=== PATIENT | female | born 1945 | race Caucasian/White ===

== ENCOUNTER 2017-10-14 09:48 | Outpatient (CLI) | payer OTHER | END 2017-10-14 09:50 | LOC: POD 09:48 | PROVIDERS: ATTEND Podiatrist Public Medicine | DX: M72.2 Plantar fascial fibromatosis (principal); M79.671 Pain in right foot; M79.672 Pain in left foot; B35.1 Tinea unguium; L60.0 Ingrowing nail; L84 Corns and callosities; M20.11 Hallux valgus (acquired), right foot; M20.12 Hallux valgus (acquired), left foot | CPT/HCPCS: 11721; G0463 ==